=== PATIENT | male | born 1950 | race Caucasian/White ===

== ENCOUNTER → 2017-04-05 | Outpatient (CLI) | payer BC ==
[~2017-04-05] VITALS: Ht 167.6 cm; Wt 80.7 kg
[~2017-04-05] MED LIST: LORTAB 5-325 M1 EACH PO; MOTRIN600 MG PO; NAPROSYN-EC500 MG PO
== END | disposition home or self-care (01) ==
LOC: AMB 03-29 07:00
PROC: 0DJDXZZ Inspection of Lower Intestinal Tract, External Approach (ICD-10-PCS; principal; 2017-04-05)
DX: Z12.11 Encounter for screening for malignant neoplasm of colon (principal); Z85.038 Personal history of other malignant neoplasm of large intestine; Z53.09 Procedure and treatment not carried out because of other contraindication
CPT/HCPCS: 93005